=== PATIENT | female | born 1985 | race Caucasian/White ===

== ENCOUNTER 2020-05-03 22:46 | Inpatient (IN) ==
[~2020-05-03 22:46] MED LIST: Famotidine 20 MG/2 ML VIAL IVP PRN; Lidocaine 1% 20 ML MDV INFILT PRN; Metoclopramide 10 MG/2 ML VIAL IVP PRN; Naloxone 0.4 MG/ML INJ IVP PRN; Ondansetron 4 MG/2 ML VIAL IVP PRN; Ringers Solution, Lactated 1,000 ML IVC SCH; Ringers Solution, Lactated 1,000 ML ONE
[2020-05-03 22:59] LABS: Basophils % 0.3 %; Eosinophils # 0.2 K/mcL (0.0-0.6); Eosinophils % 2.1 %; Hematocrit 37.5 % (35.3-44.9); Hemoglobin 13.1 g/dL (11.5-15.4); Immature Granulocytes % 0.7 % (0-4); Lymphocytes # 1.6 K/mcL (0.6-4.6); Lymphocytes % 21.9 %; Mean Corpuscular HGB Conc 34.9 g/dL (31.6-35.5); Mean Corpuscular Hemoglobin 33.2 pg (28.0-33.3); Mean Corpuscular Volume 94.9 fL (83.0-100.0); Mean Platelet Volume 10.3 fL (9.4-12.4); Monocytes # 0.8 K/mcL (0.0-1.3); Monocytes % 10.1 %; Neutrophils # 4.9 K/mcL (1.6-8.9); Platelet Count 215 K/mcL (140-400); Red Blood Count 3.95 M/mcL (3.82-4.97); Red Cell Distribution Width 11.9 % (11.5-14.5); Segmented Neutrophils % 64.9 %; White Blood Count 7.5 K/mcL (4.3-11.1)
[2020-05-03 23:17] LABS: Amphetamine Screen,Urine Negative ng/mL (Cutoff=1000); Barbiturate Screen,Urine Negative ng/mL (Cutoff=200); Benzodiazepines Screen,Urine Negative ng/mL (Cutoff=200); Cannabinoid Screen,Urine Negative ng/mL (Cutoff = 50); Cocaine Screen,Urine Negative ng/mL (Cutoff= 300); Opiate Screen,Urine Negative ng/mL (Cutoff=300); Phencyclidine Screen,Urine Negative ng/mL (Cutoff=25)
[2020-05-03] MEDS ORDERED: Bupivacaine-MPF 0.25% 10 ML VIAL EP ONE (23:22)
[2020-05-03] MEDS ORDERED: *HR* FentaNYL (PF) 100 MCG/2 ML VIAL EP ONE (23:22)
[2020-05-03] MEDS ORDERED: EPHEDrine 50 MG/ML VIAL IVP PRN (23:22)
[2020-05-03] MEDS ORDERED: Bupivacaine-MPF 0.25% 10 ML VIAL ONE (23:28)
[2020-05-03] MEDS ORDERED: Epidural Premix (fent/bupiv) 110 ML EP SCH (23:30)
[2020-05-03] MEDS ORDERED: Oxytocin 20 units/ LR 1000 mL 20 UNIT/1,000 ML BAG IVC ONE (23:53)
[2020-05-04] MEDS ORDERED: Lidocaine -MPF 2% 5 ML VIAL ONE (01:34)
[2020-05-04] MEDS ORDERED: *HR* FentaNYL (PF) 100 MCG/2 ML VIAL ONE (01:35)
[2020-05-04] MEDS ORDERED: Oxytocin 20 units/ LR 1000 mL 20 UNIT/1,000 ML BAG IVC ONE ×2 (02:00→04:15)
[2020-05-04] MEDS ORDERED: MetroNIDAZOLE 500 MG/100 ML 500 MG/100 ML BAG IVPB ONE (02:03)
[2020-05-04] MEDS ORDERED: CeFAZolin 2,000 MG/50 ML BAG IVPB SCH (03:00)
[2020-05-04] MEDS ORDERED: Oxytocin 20 units/ LR 1000 mL 20 UNIT/1,000 ML BAG IVC SCH (04:44)
[2020-05-04] MEDS ORDERED: Rho Immune Globulin 1,500 UNIT SYRINGE IM PRN (04:44)
[2020-05-04] MEDS ORDERED: Benzocaine/Menthol 56 GM AEROSOL SPRAY TP PRN (04:44)
[2020-05-04] MEDS ORDERED: Lanolin 7 G OINT...G. TP PRN (04:44)
[2020-05-04] MEDS ORDERED: Acetaminophen 325 MG TABLET PO PRN (05:00)
[2020-05-04] MEDS: Ibuprofen 600 MG TABLET PO SCH ×2 (08:04→15:02)
[2020-05-04] MEDS: Prenatal Vit/FA 1 EACH TABLET PO SCH (08:04)
[2020-05-04] MEDS: cephALEXin 500 MG CAPSULE PO SCH ×3 (08:05→20:32)
[2020-05-04] MEDS: miSOPROStoL 100 MCG TABLET PO SCH ×3 (08:05→20:33)
[2020-05-04] MEDS: metroNIDAZOLE 500 MG TABLET PO SCH ×3 (08:05→20:32)
[2020-05-05 06:04] LABS: Basophils % 0.4 %; Eosinophils % 1.3 %; Hematocrit 32.7 % (35.3-44.9); Immature Granulocytes % 1.2 % (0-4); Lymphocytes % 19.8 %; Mean Corpuscular HGB Conc 33.6 g/dL (31.6-35.5); Mean Corpuscular Volume 95.1 fL (83.0-100.0); Mean Platelet Volume 10.2 fL (9.4-12.4); Monocytes % 7.7 %; Platelet Count 203 K/mcL (140-400); Red Blood Count 3.44 M/mcL (3.82-4.97); Red Cell Distribution Width 12.2 % (11.5-14.5); Segmented Neutrophils % 69.6 %; White Blood Count 9.4 K/mcL (4.3-11.1)
[2020-05-05 06:05] LABS: Eosinophils # 0.1 K/mcL (0.0-0.6); Lymphocytes # 1.9 K/mcL (0.6-4.6); Monocytes # 0.7 K/mcL (0.0-1.3); Neutrophils # 6.5 K/mcL (1.6-8.9)
[2020-05-05] MEDS: Prenatal Vit/FA 1 EACH TABLET PO SCH (08:01)
[2020-05-05] MEDS: metroNIDAZOLE 500 MG TABLET PO SCH (08:01)
[2020-05-05] MEDS: miSOPROStoL 100 MCG TABLET PO SCH (08:01)
[2020-05-05] MEDS: cephALEXin 500 MG CAPSULE PO SCH (08:03)
[2020-05-05 08:04] VITALS: BP 99/61
[2020-05-05] MEDS: Ibuprofen 600 MG TABLET PO SCH (10:56)
== END 2020-05-05 11:20 | disposition home or self-care (01) | DRG 806 ==
LOC: 1NENULAB → 1NENUOBS 05-04 04:45
PROVIDERS: ADMIT Obstetrics & Gynecology; ATTEND Obstetrics & Gynecology